=== PATIENT | male | born 1970 | race Caucasian/White ===

== ENCOUNTER → 2017-12-26 | Outpatient (CLI) | payer OTHER ==
[2017-12-26 19:24] LABS: Albumin 4.8 g/dL (3.5-5.0); Calcium 9.5 mg/dL (8.4-10.2); Potassium 4.4 mmol/L (3.5-5.1); Total Bilirubin 0.7 mg/dL (0.2-1.3); Total Protein 7.4 g/dL (6.3-8.2)
[2017-12-26 19:39] LABS: Basophils % (A) 1 %; Eosinophils # (A) 0.1 k/uL (0-0.7); Eosinophils % (A) 2 %; HCT 47.2 % (39.0-53.0); HGB 16.8 gm/dL (13.0-17.5); Lymphocytes # (A) 1.8 k/uL (1.0-4.8); Lymphocytes % (A) 31 %; MCH 30.4 pg (25.0-35.0); MCHC 35.6 g/dL (31.0-37.0); MCV 85.5 fL (80.0-100.0); Mean Platelet Volume 7.9; Monocytes # (A) 0.4 k/uL (0-1.0); Monocytes % (A) 8 %; Neutrophils # (A) 3.2 k/uL (1.3-7.7); Neutrophils % (A) 57 %; Platelet Count 181 k/uL (150-450); RBC 5.52 m/uL (4.30-5.90); RDW 12.8 % (11.5-15.5); T4, Free (Free Thyroxine) 1.57 ng/dL (0.78-2.19); WBC 5.7 k/uL (3.8-10.6)
== END | disposition home or self-care (01) ==
LOC: MMGSC 10:06
PROVIDERS: ATTEND Family Medicine
DX: E78.5 Hyperlipidemia, unspecified (principal); E03.9 Hypothyroidism, unspecified; R03.0 Elevated blood-pressure reading, without diagnosis of hypertension
CPT/HCPCS: 36415; 80053; 80061; 84439; 84443; 85025

== ENCOUNTER → 2023-08-15 | Outpatient (CLI) | payer OTHER ==
--- NOTE | 2023-08-15 14:04 | MR ---
EXAMINATION TYPE: MR brain wo con DATE OF EXAM: 08/15/2023 COMPARISON: NONE HISTORY: Cognitive changes. TECHNIQUE: Multiplanar, multisequence imaging of the brain and brainstem is performed without IV cont rast. FINDINGS: Diffusion weighted images demonstrate no evidence of a recent infarct or other diffusion abnormality. There is no extraaxial fluid collection or significant white matter signal abnormality. Mild sulcal prominence over the bilateral frontal lobes. The ventricular system and cisternal spaces are otherwis e normal in size and appearance. The brain volume is age appropriate. Midline structures demonstrate normal morphology. The craniocervical junction appears within normal limits. Normal vascular flow voids are present. The visualized sinuses are clear and the globes are i ntact. IMPRESSION: Mild bilateral frontal lobe atrophy. No significant white matter changes.
== END | disposition home or self-care (01) ==
LOC: RADMRIMAIN 12:17
PROVIDERS: ATTEND Family Medicine
DX: G31.9 Degenerative disease of nervous system, unspecified (principal); R41.89 Other symptoms and signs involving cognitive functions and awareness
CPT/HCPCS: 70551

== ENCOUNTER → 2024-06-04 | Outpatient (CLI) | payer OTHER ==
[2024-06-04 14:45] VITALS: BP 133/88; PULSE 69; RESP 14; TEMP 98.1
--- NOTE | 2024-06-04 15:13 | P.SLEEP ---
History of Present Illness DATE: 06/04/2024 CONSULTATION/NEW PATIENT EVALUATION HISTORY OF PRESENT ILLNESS/SLEEP-WAKE EVALUATION: 54-year-old gentleman had b een evaluated in the sleep center for possible obstructive sleep apnea hypopnea syndrome. Patient was diagnosed with severe obstructive sleep apnea in 2016 in our institution, but did not proceed with CPAP treatment at that time. SLEEP SCHEDULE: Usually sleep schedule from 8:30 PM to 4:40 AM on weekdays and until 6 AM on weekend. FALLING ASLEEP: No problems with falling asleep. DURING SLEEP: Patient snores and wakes up from sleep up to 4 times with 1 episode of nocturia. No history of hypnogogical hallucinations, sleep paralysis, or cataplexy. DURING THE DAY/WAKE STATE: In the morning patient wake up tired, has problems with memory, concentration, irritability, depression and anxiety. [place] sleepiness scale is significantly increased to 13. Patient may take nap at afternoon time. PAST MEDICAL HISTORY: Hypertension, hyperlipidemia, tendinitis, sinuses problems, hypothyroidism. PAST SURGICAL HISTORY: PRK eye surgery. MEDICATIONS: Please see below. SOCIAL HISTORY: Please see below. FAMILY HISTORY: Hypertension, heart problems, hyperlipidemia, diabetes. REVIEW OF SYSTEMS: Snoring, awakenings from sleep, sleepiness during the day. No fevers. No double vision. No recent chest pain. No shortness of breath. No abdominal pain. No bleeding episodes. No blood in urine. No seizure episodes. PHYSICAL EXAMINATION: GENERAL: A pleasant patient without any distress. VITAL SIGNS: Please see below, weight 190.6 pounds, BMI 29.1. HEENT: PERRLA, EOMI. Evaluation of oropharynx showed tongue protrudes midline, low position of soft palate Mallampati 4. NECK: Supple. No JVD. Thyroid is not palpable. 16-1/4 inches in circumference. LUNGS: Clear to percussion and to auscultation. Good air exchange. No wheezing or rhonchi. HEART: S1, S2 regular. No murmurs, gallops or rubs. ABDOMEN: Soft and nontender. Bowel sounds are present. No organomegaly appreciated. EXTREMITIES: No clubbing or cyanosis. HANDLE ASSEMBLER: Awake, alert, and oriented x3. Cranial nerves 2 to 7 intact. There is no fasciculation or atrophy noted. No focal deficits observed. ASSESSMENT: 1. Snoring, multiple awakenings from sleep, extremely low position of soft palate Mallampati 4, sleepiness during the day with [place] Sleepiness Scale 13, severe obstructive sleep apnea hypopnea syndrome diagnosed in our institution in 2016. Obstructive sleep apnea hypopnea syndrome. 2. Hypertension. 3. Hyperlipidemia. 4. Tinnitus. 5 sinus problems. 6 . Hypothyroidism. 7. Status post ER K eye surgery. PLAN: 1. Polysomnography for evaluation of patient's breathing during sleep. 2. Following plan after reading sleep study. 3. Preferable position during sleep on the side. 4. No driving if patient feels any sleepiness. Patient is aware of civil and criminal liability for unsafe driving. 5. Sleep hygiene with regular sleep time for at least 7.5-8 hours. 6. Watching weight. Thank you very much for referring this patient for consultation. Sincerely, Moy Andrews MD, PhD, FAASM. Diplomat of [place] [employer], Sleep Medicine Board by [place] [employer] [place] [employer] Desk Clerk of [facility] [place] cc: Paula Mason MD Past Medical History Past Medical History: Hyperlipidemia, Hypertension, Thyroid Disorder Additional Past Medical History / Comment(s): Sinus headaches, snoring, headaches, History of Any Multi-Drug Resistant Organisms: None Reported Past Surgical History: Adenoidectomy, Tonsillectomy Additional Past Surgical History / Comment(s): PRK - bilateral eyes Smoking Status: Never smoker Past Alcohol Use History: None Reported Past Drug Use History: None Reported - Past Family History Father Family Medical History: Hyperlipidemia, Hypertension Additional Family Medical History / Comment(s): Heart problems, snoring, Mother Family Medical History: Diabetes Mellitus, Hyperlipidemia, Hypertension Additional Family Medical History / Comment(s): Heart problems, headaches Medications and Allergies Home Medications Medication Instructions Recorded Confirmed Type Atorvastatin [Lipitor] 20 mg PO DAILY 06/04/24 06/04/24 History Levothyroxine Sodium [Synthroid] 137 mcg PO DAILY 06/04/24 06/04/24 History amLODIPine 20 mg PO DAILY 06/04/24 06/04/24 History Physical Exam Vitals: Vital Signs Temp Pulse Resp BP Pulse Ox 06/04/24 14:45 98.1 F 69 14 133/88 95 Intake and Output 06/04/24 06/04/24 06/04/24 06:59 14:59 22:59 Other: Weight 86.353 kg Sleep Note - Sleep Data ESS Total: 13 - Sleep Note Sleep Note: Temperature: 98.1 F Pulse Rate: 69 Respiratory Rate: 14 Blood Pressure: 133/88 SpO2: 95 Height: 5 ft 7.7 in Weight: 86.353 kg BMI: Neck Circumference: 16.2
== END ==
LOC: 3 N SLEEP 14:16
PROVIDERS: ATTEND Internal Medicine
CPT/HCPCS: 99211

== ENCOUNTER 2024-06-29 19:36 | Outpatient (CLI) | payer OTHER ==
--- NOTE | 2024-07-01 17:59 | P.PCN ---
Description of Procedure: POLYSOMNOGRAPHY REPORT PROCEDURE(S)/DATE(S): Polysomnography 06/29/2024 CLINICAL: Patient has been seen in the sleep center for evaluation of obstructive sleep apnea-hypopnea syndrome. Please see my consultation. Sleep study has been done for evaluation of patient breathing during the sleep. PROCEDURE: The standard montage for clinical polysomnography included the electroencephalogram, the electrooculogram, the mentalis surface electromyography and Lead II cardiography. The respiratory battery consisted of measurements of nasal/buccal air flow, pressure transducer measurements from nose, thoracic and/or abdominal effort and intercostal surface electromyography. Video monitoring has been done to check for any parasomnia events. Nocturnal oxyhemoglobin saturations were obtained by finger oximetry. Step-stark titration with positive airway pressure was utilized to control the respiratory events, if necessary. RESULTS: During the diagnostic sleep study sleep efficiency was decreased to 73.2%. Latency to sleep onset was significantly prolonged to 42.5 min. Sleep architecture showed stage NI was normal 6.7%, Delta sleep was absent 0%, REM sleep was normal 20.0%. Respiratory channel showed 0 obstructive apneas, 0 mixed apneas, 2 central apneas, 16 hypopneas with lowest oxygen level 87%. Total apnea hypopnea index was 5.1. Heart rate was in the range between 57 and 65, average 61. EMG showed 31.4 periodic limb movements per hour with 0 micro-arousals per hour. IMPRESSIONS: 1. Mild obstructive sleep apnea hypopnea syndrome. 2. Significant periodic limb movements have been documented. 3. Hypertension Please see other impressions from consultation PLAN: 1. The patient will have AutoPAP treatment for correction of respiratory abnormalities during the sleep. 2. Losing weight. 3. Sleep hygiene with regular time in bed for at least 7-1/2 hours. 4. No driving if feeling sleepiness. 5. Please check iron profile including ferritin level. Low level of iron may increase the risk for periodic limb movements. 6. I will see patient for follow-up visit to evaluate clinical response on treatment, compliance with treatment and [place] adjustments related to mask fitting pressure and humidification. If necessary will consider pharmacotherapy for periodic limb movements. Thank you very much for allowing me to participate in the management of your patient. Sincerely, Moy Andrews MD, PhD, FAASM. Diplomat of [place] [employer], Sleep Medicine Board by [place] [employer]ographer of [facility] [place] cc: Paula Mason MD
== END 2024-06-30 04:15 | disposition home or self-care (01) ==
LOC: 3 N SLEEP 19:36
PROVIDERS: ATTEND Internal Medicine
DX: G47.33 Obstructive sleep apnea (adult) (pediatric) (principal); G47.61 Periodic limb movement disorder; I10 Essential (primary) hypertension; G47.10 Hypersomnia, unspecified; Z79.899 Other long term (current) drug therapy
CPT/HCPCS: 95810